=== PATIENT | female | born 1950 | race Two or more races ===

== ENCOUNTER 2021-04-25 22:06 | Inpatient (IN) | payer MEDICARE ==
[2021-04-25] MEDS ORDERED: HYDROcodone/APAP 5-325MG 1 EACH TAB PO STA (22:40)
--- NOTE | 2021-04-25 22:41 | ED ---
Fall HPI - General Chief Complaint: Fall Stated Complaint: Fall Time Seen by Provider: 04/25/21 22:13 Source: patient, RN notes reviewed, old records reviewed Mode of arrival: ambulatory Limitations: language barrier - History of Present Illness Initial Comments: This is a 62-year-old female with several from dementia as well as language barrier presented for a fall playing tennis today. Patient doesn't family provide history patient's been not male not have a libertarian since fall with right leg right hip pain. No other history is given. Patient denies any other complaints. Follows mechanical lowering backwards playing tenderness Complaint: fall -: hour(s) Fall From: standing When Fall Occurred: 1-3 hours [employer] Fall Witnessed: yes, by family Place Fall Occurred: street Loss of Consciousness: none Prolonged Down Time?: no Symptoms Prior to Fall: none Location - Extremities: Right: Thigh, Knee Severity: moderate Severity scale (1-10): 6 Quality: sharp Context: tripped/slipped Associated Symptoms: denies - Related Data Home Medications Medication Instructions Recorded Confirmed Atorvastatin [Lipitor] 20 mg PO HS 04/26/21 04/26/21 Donepezil HCl [Aricept] 10 mg PO HS 04/26/21 04/26/21 Memantine HCl 10 mg PO BID 04/26/21 04/26/21 Multivitamins, Thera [Multivitamin 1 tab PO DAILY 04/26/21 04/26/21 (formulary)] Allergies Allergy/AdvReac Type Severity Reaction Status Date / Time No Known Allergies Allergy Verified 04/26/21 12:04 Review of Systems ROS Statement: Those systems with pertinent positive or pertinent negative responses have been documented in the HPI. ROS Other: All systems not noted in ROS Statement are negative. Past Medical History Additional Past Medical History / Comment(s): dementia History of Any Multi-Drug Resistant Organisms: None Reported Past Surgical History: No Surgical Hx Reported Past Psychological History: No Psychological Hx Reported Smoking Status: Never smoker Past Alcohol Use History: None Reported Past Drug Use History: None Reported General Exam General appearance: alert, in no apparent distress Head exam: Present: atraumatic, normocephalic, normal inspection Eye exam: Present: normal appearance, PERRL, EOMI. Absent: scleral icterus, conjunctival injection, periorbital swelling ENT exam: Present: normal exam, mucous membranes moist Neck exam: Present: normal inspection. Absent: tenderness, meningismus, lymphadenopathy Respiratory exam: Present: normal lung sounds bilaterally. Absent: respiratory distress, wheezes, rales, rhonchi, stridor Cardiovascular Exam: Present: regular rate, normal rhythm, normal heart sounds. Absent: systolic murmur, diastolic murmur, rubs, gallop, clicks GI/Abdominal exam: Present: soft, normal bowel sounds. Absent: distended, tenderness, guarding, rebound, rigid Extremities exam: Present: normal inspection, full ROM, normal capillary refill. Absent: tenderness, pedal edema, joint swelling, calf tenderness Back exam: Present: normal inspection Neurological exam: Present: alert, oriented X3, CN II-XII intact Psychiatric exam: Present: normal affect, normal mood Skin exam: Present: warm, dry, intact, normal color. Absent: rash Course Vital Signs 04/25/21 04/26/21 22:07 02:00 Temperature 98.2 F 98.4 F Pulse Rate 61 Pulse Rate [ 64 Right Dorsalis Pedis] Respiratory 17 16 Rate Blood Pressure 114/64 Blood Pressure 164/70 [Left Arm] O2 Sat by Pulse 99 98 Oximetry - Reevaluation(s) Reevaluation #1: 04/25/21 22:50 Medical records reviewed Reevaluation #2: 04/25/21 22:50 Pain is improved Reevaluation #3: Patient informed results and questions answered - Consultations Consultation #1: Spoke with orthopedics okay for admission Medical Decision Making - Medical Decision Making 62 female DF for evaluation status post trip and fall. Patient did suffer right hip fracture. Patient be admitted for the P treatment and evaluation - Lab Data Result diagrams: 04/26/21 01:32 04/26/21 01:32 - EKG Data -: EKG Interpreted by Me (EKG is sinus a 61 GA 140 QRS 86 QTc 404) - Radiology Data Radiology results: report reviewed (X-ray right hip and knee show right hip fracture), image reviewed Disposition Clinical Impression: Fall, Closed right hip fracture Disposition: ADMITTED IP TO THIS [facility] Condition: Good Is patient prescribed a controlled substance at d/c from ED?: No
--- NOTE | 2021-04-25 23:35 | XR ---
EXAMINATION TYPE: XR knee complete RT DATE OF EXAM: 04/25/2021 COMPARISON: NONE HISTORY: Fall. Knee pain TECHNIQUE: 3 views FINDINGS: I see no fracture nor dislocation. Joint spaces are fairly normal. There is no sign of knee joint effusion. IMPRESSION: Negative right knee exam.
--- NOTE | 2021-04-25 23:36 | XR ---
EXAMINATION TYPE: XR Hip RT and AP Pelvis DATE OF EXAM: 04/25/2021 COMPARISON: NONE HISTORY: Pain TECHNIQUE: 3 views FINDINGS: There is slightly impacted acute subcapital fracture right femur. There is no dislocation. The pelvic ring is intact. Sacroiliac joints are intact. IMPRESSION: Acute subcapital impacted fracture right femur.
[2021-04-26] MEDS ORDERED: SODIUM CHLORIDE 0.9% 1,000 ML IV STA (00:39)
[2021-04-26] MEDS ORDERED: MORPHINE SULFATE 4 MG/ML SYRINGE IV STA (00:39)
[2021-04-26] MEDS ORDERED: SODIUM CHLORIDE 0.9% 500 ML 500 ML IV STA (00:39)
--- NOTE | 2021-04-26 01:10 | XR ---
EXAMINATION TYPE: XR chest 1V portable DATE OF EXAM: 04/26/2021 COMPARISON: NONE HISTORY: Hip fracture TECHNIQUE: Single view FINDINGS: There is no heart failure nor confluent pneumonic infiltrate. Costophrenic angles are clear . There are no hilar masses. Thoracic aorta is atheromatous. There is no pleural effusion. IMPRESSION: No active cardiopulmonary disease.
[2021-04-26] MEDS ORDERED: ONDANSETRON 4 MG/2 ML VIAL IVP PRN (01:29)
[2021-04-26] MEDS ORDERED: NALOXONE 0.4 MG/ML 1 ML VIAL IV PRN (01:29)
[2021-04-26 02:02] LABS: Basophils % (A) 0 %; Eosinophils % (A) 0 %; HGB 13.8 gm/dL (11.4-16.0); Lymphocytes # (A) 0.8 k/uL (1.0-4.8); Lymphocytes % (A) 10 %; MCH 32.2 pg (25.0-35.0); MCHC 34.5 g/dL (31.0-37.0); MCV 93.2 fL (80.0-100.0); Monocytes # (A) 0.3 k/uL (0-1.0); Monocytes % (A) 4 %; Neutrophils % (A) 85 %; Platelet Count 210 k/uL (150-450); RBC 4.29 m/uL (3.80-5.40); RDW 12.5 % (11.5-15.5); WBC 8.2 k/uL (3.8-10.6)
[2021-04-26 02:06] LABS: Appearance,Urine Clear (Clear); Bilirubin,Urine Negative (Negative); Blood,Urine Negative (Negative); Color,Urine Yellow; Glucose,Urine (UA) Negative (Negative); Ketones,Urine Trace (Negative); Leukocyte Esterase,Urine Negative (Negative); Nitrite,Urine Negative (Negative); Protein,Urine Negative (Negative); Specific Gravity,Urine 1.023 (1.001-1.035); Urobilinogen,Urine <2.0 mg/dL (<2.0)
[2021-04-26 02:17] LABS: ALT 31 U/L (4-34); AST 39 U/L (14-36); African American GFR (CKD) >90 (>60 ml/min/1.73 sqM); Albumin 4.3 g/dL (3.5-5.0); Alkaline Phosphatase 67 U/L (38-126); Anion Gap 7 mmol/L; Blood Urea Nitrogen 23 mg/dL (7-17); Calcium 9.5 mg/dL (8.4-10.2); Carbon Dioxide 29 mmol/L (22-30); Chloride 105 mmol/L (98-107); Glucose 103 mg/dL (74-99); INR 0.9 (<1.2); Non-African American GFR(CKD) >90 (>60 ml/min/1.73 sqM); Partial Thromboplastin Time 22.4 sec (22.0-30.0); Phosphorus 4.4 mg/dL (2.5-4.5); Potassium 3.9 mmol/L (3.5-5.1); Prothrombin Time 10.2 sec (9.0-12.0); Sodium 141 mmol/L (137-145); Total Bilirubin 0.7 mg/dL (0.2-1.3); Total Protein 7.2 g/dL (6.3-8.2)
[2021-04-26] MEDS: DEXTROSE 5%-0.45% NACL 1,000 ML IV SCH ×2 (04:36→23:21)
[2021-04-26] MEDS: HYDROcodone/APAP 5-325MG 1 EACH TAB PO PRN ×2 (05:08→17:33)
[2021-04-26] MEDS ORDERED: ACETAMINOPHEN TAB 325 MG TAB PO PRN (09:38)
--- NOTE | 2021-04-26 09:48 | P.HPOR ---
History of Present Illness H&P Date: 04/26/21 Chief Complaint: Right femoral neck fracture Patient is a 70-year-old female who presented to [facility] for evaluation of a right lower extremity injury. Apparently the patient was playing tennis with some family when she tripped and fell onto that right side. She initially was unable to put any weight on the leg, EMS was contacted and brought patient to the hospital. Upon arrival to the hospital, imaging and lab tests were done, images demonstrated a right impacted subcapital femur fracture. I was contacted by the emergency room staff, I was able to review the images. Patient was admitted under orthopedic care with plan for likely surgical int ervention. Consults were placed for internal medicine for management clearances. Patient was evaluated today on the med/surgical floor, she is resting comfortably in her hospital bed. There is a severe language barrier but I was able to discuss most of the case received most of the history from her. I also contacted her daughter and spoke with her in depth of the current treatment plan. Patient notes no other orthopedic complaints besides the right lower extremity. She notices the pain in the right lower extremity with movement. She denies any headaches, lightheadedness, chest pain, shortness of breath, nausea vomiting, fever or chills. Patiently recently moved to [place] to live with her daughter, she was in [place] before that. They're in town visiting family and were actually heading back to [place] tomorrow. Patient does have some early signs of dementia, this to include short-term memory loss. She is a rather active and healthy woman otherwise. Past Medical History Additional Past Medical History / Comment(s): dementia History of Any Multi-Drug Resistant Organisms: None Reported Past Surgical History: No Surgical Hx Reported Past Psychological History: No Psychological Hx Reported Smoking Status: Never smoker Past Alcohol Use History: None Reported Past Drug Use History: None Reported Medications and Allergies Home Medications Medication Instructions Recorded Confirmed Type Unable To Assess [Unable to Assess] 04/25/21 04/25/21 History Allergies Allergy/AdvReac Type Severity Reaction Status Date / Time No Known Allergies Allergy Verified 04/25/21 23:22 Physical Examination Right lower extremity: No obvious open lesions or sores are visualized, there is no significant areas of erythema or soft tissue swelling Patient is tender with palpation involving the proximal femur near the hip joint, she is nontender with palpation of the distal femur, this to include the knee, lower tibia/fib, foot or ankle Logroll maneuver does reproduce discomfort, she is unable to straight leg raise Plantar flexion, dorsiflexion, EHL, FHL are intact. Hip flexion, knee flexion and knee extension were not assessed due to pain. Calf is soft, no tenderness with palpation Her sensory exam light touch throughout the extremity is intact, and his cells pedis pulses 2+ General orthopedic exam: No tenderness in the midline and paraspinal region of the cervical, thoracic or lumbar spine, no obvious step-off is appreciated No point tenderness is reproduced in the bilateral upper extremities, she has painless range of motion in all major muscle groups of the bilateral upper extremities No point tenderness in the left lower extremity, she has full passive and active range of motion. Neurovascular exam is intact in the bilateral upper extremities and left lower extremity Results - Labs Labs: Abnormal Lab Results - Last 24 Hours (Table) 04/26/21 04/26/21 04/26/21 Range/Units 01:32 01:32 01:32 Lymphocytes # 0.8 L (1.0-4.8) k/uL BUN 23 H (7-17) mg/dL Glucose 103 H (74-99) mg/dL AST 39 H (14-36) U/L Urine Ketones Trace H (Negative) H & H 04/26/21 Range/Units 01:32 Hgb 13.8 (11.4-16.0) gm/dL Hct 40.0 (34.0-46.0) % Coagulation 04/26/21 Range/Units 01:32 INR 0.9 (<1.2) Result Diagrams: 04/26/21 01:32 04/26/21 01:32 - Diagnostic results Hip MRI: report reviewed, image reviewed (Images demonstrate an impacted right subcapital femur fracture. The remaining hip joint is intact, no other osseous abnormality is appreciated.) Assessment and Plan Assessment: Displaced right subcapital femur fracture status post fall from standing Other medical comorbidities Plan: I was able to discuss the case, including with physical exam findings and imaging certainly attending Dr. Guevara. We did like to proceed with surgical intervention, specifically a right total hip arthroplasty on 04/27/2021. The risk and benefits of the procedure were discussed with both patient and the daughter, this to include but not excluded blood loss, neurovascular injury, de velopment of blood clots, pain and stiffness, and adequate healing of bone, need for subsequent surgery. They're in good understanding and would like to proceed. Obtain consent Nothing by mouth after midnight Nonweightbearing right lower extremity at this time PT/OT evaluation after surgery GI and DVT prophylaxis, we'll begin eloquence 2.5 mg twice a day after surgery Other paramedical aide recommendations Discharge planning: Discussed with patient's daughter over the phone regarding d ischarge and returning to [place]. Advised that staying in the general area with home health care for a week or 2 would be of benefit. Patient would benefit from flying vs driving back to [place]. Did also discuss the patient she will need orthopedic follow-up once returning to [place].
[2021-04-26] MEDS: KETOROLAC 15 MG/ML 1 ML VIAL IVP SCH ×3 (11:54→23:20)
[2021-04-27] MEDS: HYDROcodone/APAP 5-325MG 1 EACH TAB PO PRN ×3 (02:45→21:45)
[2021-04-27] MEDS: KETOROLAC 15 MG/ML 1 ML VIAL IVP SCH ×4 (06:03→23:28)
[2021-04-27] MEDS ORDERED: LACTATED RINGERS 1,000 ML IV ONE (07:40)
[2021-04-27] MEDS ORDERED: PROPOFOL 10 MG/ML 20 ML VIAL IV ONE (08:03)
[2021-04-27] MEDS ORDERED: ePHEDrine SULFATE/0.9% NACL/PF 50 MG/5 ML SYRINGE IV ONE (08:03)
[2021-04-27] MEDS ORDERED: ONDANSETRON 4 MG/2 ML VIAL ONE (08:03)
[2021-04-27] MEDS ORDERED: fentaNYL (PF) 50 MCG/ML 2 ML AMP ONE (08:03)
[2021-04-27] MEDS ORDERED: SODIUM CHLORIDE 0.9% 100 ML with ceFAZolin 2,000 MG IV ONE ×2 (08:37)
[2021-04-27] MEDS ORDERED: MAGNESIUM HYDROXIDE 2,400 MG/10 ML CUP PO PRN (09:29)
--- NOTE | 2021-04-27 09:56 | P.OP ---
Date of Procedure: 04/27/21 Preoperative Diagnosis: Displaced right subcapital femoral neck fracture Postoperative Diagnosis: Same Procedure(s) Performed: Right hip hemiarthroplastypress-fit Implants: Depuy Corail size 9/125 press-fit collared femoral stem -3 neck, 41 mm unipolar head Anesthesia: spinal Surgeon: Drew Guevara Behavioral Instructor #1: Rayray Werner Estimated Blood Loss (ml): 100 Pathology: other (Femoral head) Condition: stable Disposition: PACU Indications for Procedure: Patient is a 70-year-old female presents after falling injuring her right hip. Upon evaluation she was noted have a displaced right subcapital femoral neck fracture. She is a community ambulator, however has early-onset dementia. A discussion of the risks and benefits of operative intervention was made with the patient and her family. Operative options to include right hip hemiarthroplasty versus total hip arthroplasty were discussed. They opted to proceed with hemiarthroplasty. Specific risks of surgery to include infection, neurovascular injury, development of blood clots, possible leg length discrepancy, possible fracture, possible instability need for subsequent procedures was discussed. Informed consent was obtained. Operative Findings: as below Description of Procedure: The patient was brought to the operating room, and after induction of spinal anesthesia was placed in the lateral decubitus position. Bony prominences were appropriately padded. The pelvis was stabilized perpendicular to the floor with a pegboard. The right lower extremity was prepped and draped in normal fashio n. A 12 cm incision was then made centered over the greater trochanter extending superiorly to level ASIS and distally along the femoral shaft. Skin and subcutaneous tissues were divided sharply. Electrocautery was used for hemostasis. The fascia serafin and gluteus faheem fascia was split in line with the skin incision. Muscle fibers were bluntly dissected proximally. A self- retaining retractor was placed. The anterior and posterior margins of the gluteus medius muscles identified in the into two thirds detached the greater trochanter with electrocautery. The gluteus minimus tendon was identified and detached in a similar fashion. A T-shaped capsulotomy was performed. The capsular flaps were tagged with #2 Ethibond suture. The femoral neck fracture was then identified. A lower neck cut was made at 45 the shaft with a sagittal saw to help facilitate head extraction. Head was then extracted with a corkscrew. It measured 41 millimeters . The acetabulum was inspected. No si gnificant chondral injury was noted. Attention was then paid towards preparing the proximal femur. A box chisel was used to open the metaphyseal region. A canal finder was used to find the femoral canal. Sequential broaching was performed up to a size 9 broach with the leg perpendicular to the floor in 15 of anteversion. There was good rotational stability. A calcar mill was used to fashion the medial calcar. A -3 neck and to 41 mm unipolar head was placed. The hip was gently reduced. It was taken through range of motion and felt to be stable in flexion and extension with internal and external rotation. I felt there was adequate roman catholic of soft tissue tension. Hip was gently dislocated. The trial components were then removed. Pulsatile lavage was utilized. The final size 9 /125 collared femoral stem was inserted again with the leg perpendicular to the floor in 15 of anteversion. This was fully seated. Again there was good rotational stability. A -3 neck and 41 mm unipolar head was gently impacted. Hip was gently reduced. Again it was taken through range of motion felt to be stable in flexion and extension with internal and external rotation. Again I felt there was adequate roman catholic of soft tissue tension. Pulsatile lavage was again utilized. The capsular layer was closed with interrupted #2 Ethibond suture. The gluteus minimus and medius tendons reattached the greater trochanter with #2 Ethibond suture. The fascia serafin and gluteus faheem fascia was closed with running #2 Ethibond suture. There is minimal drainage therefore a deep drain was not placed. The subcutaneous tissues were reapproximated interrupted 2-0 Vicryl sutures. Skin was reapproximated with 3-0 subcuticular strata fix suture. Skin tape and adhesive was applied. A sterile dressing was applied. The patient was then awoken from sedation and transferred to recovery room in fair condition. Blood loss was estimated 100 mL. No complications were incurred. Sponge and needle counts were correct at the end the case. Moisés MCGUIRE assisted during the major components the case to include positioning, exposure, implantation, and closure.
[2021-04-27 10:02] VITALS: RESP 16
--- NOTE | 2021-04-27 10:12 | XR ---
Right hip HISTORY: Status post right hip arthroplasty Single frontal view of the right hip Correlation to prior exam 04/25/2021 Patient is status post right hip arthroplasty. There is anatomic alignment. Lucency is present in the soft tissues. Bone mineralization is reduced. IMPRESSION: Orthopedic follow-up.
[2021-04-27] MEDS: SENNOSIDES-DOCUSATE SODIUM 1 EACH TAB PO SCH (21:43)
[2021-04-27] MEDS: MORPHINE SULFATE 2 MG/ML SYRINGE IVP PRN (23:27)
[2021-04-28] MEDS: DEXTROSE 5%-0.45% NACL 1,000 ML IV SCH (01:30)
[2021-04-28] MEDS: KETOROLAC 15 MG/ML 1 ML VIAL IVP SCH ×3 (05:49→17:04)
[2021-04-28 07:51] LABS: Basophils % (A) 0 %; Eosinophils # (A) 0.1 k/uL (0-0.7); Eosinophils % (A) 3 %; Lymphocytes # (A) 0.6 k/uL (1.0-4.8); Lymphocytes % (A) 11 %; MCH 31.3 pg (25.0-35.0); MCHC 32.3 g/dL (31.0-37.0); MCV 96.9 fL (80.0-100.0); Mean Platelet Volume 7.1; Monocytes # (A) 0.2 k/uL (0-1.0); Monocytes % (A) 4 %; Neutrophils # (A) 3.9 k/uL (1.3-7.7); Neutrophils % (A) 81 %; Platelet Count 180 k/uL (150-450); RBC 3.51 m/uL (3.80-5.40); RDW 13.1 % (11.5-15.5); WBC 4.9 k/uL (3.8-10.6)
[2021-04-28] MEDS: ENOXAPARIN 30 MG/0.3 ML SYRINGE SQ SCH (08:57)
--- NOTE | 2021-04-28 09:56 | P.PN ---
Subjective Progress Note Date: 04/28/21 Principal diagnosis: Status post hemiarthroplasty left hip Patient was evaluated today at bedside, she is resting in her hospital chair, she is up eating breakfast. She has no acute complaints at this time. She notes minimal discomfort in the left lower extremity. She has been up ambulating with the walker. The urinary catheter is still in place. She is denying any acute chest pain, shortness of breath, fever chills, nausea vomiting. Objective - Vital Signs Vital signs: Vital Signs Temp 98.4 F 04/28/21 07:40 Pulse 64 04/28/21 07:40 Resp 16 04/28/21 07:40 BP 110/68 04/28/21 07:40 Pulse Ox 97 04/28/21 07:40 Intake & Output 04/27/21 04/28/21 04/28/21 18:59 06:59 18:59 Intake Total 920 480 236 Output Total 1950 650 Balance -1030 -170 236 Intake: IV 920 Oral 480 236 Output: Urine 1850 650 Estimated Blood Loss 100 Other: Voiding Method Indwelling Catheter Indwelling Catheter - Exam Left lower extremity: Incision is clean, dry, and intact. The exofin fusion tape is in good conditio n. There is minimal soft tissue swelling and ecchymosis surrounding the medial and lateral aspects of the incision. Calf is soft, no tenderness with palpation. Plantar flexion, dorsiflexion, EHL, FHL are intact. Sensory exam to light touch throughout the extremity is intact, dorsal pedis pulses 2+. - Labs CBC & Chem 7: 04/28/21 07:07 04/26/21 01:32 Labs: Abnormal Lab Results - Last 24 Hours (Table) 04/28/21 Range/Units 07:07 RBC 3.51 L (3.80-5.40) m/uL Hgb 11.0 L (11.4-16.0) gm/dL Lymphocytes # 0.6 L (1.0-4.8) k/uL Assessment and Plan Assessment: Postoperative day #1 status post left hip hemiarthroplasty Plan: Pain control, continue use of low-dose oral medication. Avoid IV narcotics GI and DVT prophylaxis, continue Lovenox at this time Encourage incentive spirometer PT/OT evaluation Weight-bear as tolerated with walker Medical recommendations Discharge planning: We'll discuss the patient's family today options for discharge. Hoping for discharge to home with home health care Time with Patient: Less than 30
[2021-04-28] MEDS: SENNOSIDES-DOCUSATE SODIUM 1 EACH TAB PO SCH (20:44)
[2021-04-28] MEDS: MORPHINE SULFATE 2 MG/ML SYRINGE IVP PRN (20:44)
[2021-04-29] MEDS: KETOROLAC 15 MG/ML 1 ML VIAL IVP SCH ×2 (00:08→05:56)
[2021-04-29] MEDS: DEXTROSE 5%-0.45% NACL 1,000 ML IV SCH (01:48)
[2021-04-29] MEDS: ENOXAPARIN 30 MG/0.3 ML SYRINGE SQ SCH (07:19)
--- NOTE | 2021-04-29 10:25 | P.PN ---
Subjective Progress Note Date: 04/29/21 Principal diagnosis: Status post hemiarthroplasty left hip Patient was evaluated today at bedside, she is resting in her hospital bed. She appears comfortable at this time with no acute complaints. She is denying any acute chest pain, shortness of breath, fever chills, nausea vomiting. Objective - Vital Signs Vital signs: Vital Signs Temp 97.9 F 04/29/21 07:29 Pulse 73 04/29/21 07:29 Resp 16 04/29/21 08:31 BP 107/66 04/29/21 07:29 Pulse Ox 97 04/29/21 07:29 Intake & Output 04/28/21 04/29/21 04/29/21 18:59 06:59 18:59 Intake Total 768 300 Output Total 200 Balance 568 300 Intake: Oral 768 300 Output: Urine 200 Uretheral (Ortiz) 200 Other: Voiding Method Toilet # Voids 3 - Exam Left lower extremity: Incision is clean, dry, and intact. The exofin fusion tape is in good condition . There is minimal soft tissue swelling and ecchymosis surrounding the medial and lateral aspects of the incision. Calf is soft, no tenderness with palpation. Plantar flexion, dorsiflexion, EHL, FHL are intact. Sensory exam to light touch throughout the extremity is intact, dorsal pedis pulses 2+. - Labs CBC & Chem 7: 04/28/21 07:07 04/26/21 01:32 Assessment and Plan Assessment: Postoperative day #2 status post left hip hemiarthroplasty Plan: Pain control, plan for discharge on Tylenol 3 GI and DVT prophylaxis, aspirin 81 mg twice a day for 1 month Encourage incentive spirometer PT/OT evaluation Weight-bear as tolerated with walker Medical recommendations Discharge planning: planning for discharge to home with home healthcare today Time with Patient: Less than 30
--- NOTE | 2021-04-29 10:31 | P.DS ---
Providers Date of admission: 04/26/21 01:29 Expected date of discharge: 04/29/21 Attending physician: Drew Guevara Primary care physician: Physician Nonstaff Hospital Course: Date of admission: 04/25/2021 Date of discharge: 04/29/2021 Admission diagnosis: Displaced right subcapital femur fracture Discharge diagnosis: Status post right hip hemiarthroplasty Attending physician: Dr. Guevara Surgical procedures: Right hip hemiarthroplasty Brief history: Patient is a 70-year-old female who presented to [facility] on 04/25/2021 after sustaining a fall and injuring her right lower extremity. It was determined the patient had a displaced subcapital femur fracture, she was admitted under our orthopedic care with plan for surgical intervention. She underwent surgery on 04/27/2021 Hospital course: Details of patient's surgery can be found in operative report. Patient tolerated the procedure well and was subsequently transported to orthopedic floor. Patient's orthopeidc and medical care was provided daily. Patient had daily laboratory tests performed for evaluation of overall blood counts . Patient had daily physical therapy to include strengthening range of motion as well as education with walker ambulation. Patient was treated with Lovenox for their postoperative DVT prophylaxis during their inpatient stay. Patient was noted to have a relatively uneventful postoperative course. Patient reported satisfactory pain control with oral pain medications by postoperative day 0. Patient showed satisfactory progress with physical therapy. Patient moved steadily through the program and had no difficulty meeting the goals by postoperative day 2. Given patient's otherwise satisfactory course and having met physical therapy goals, plan is to discharge patient home on postoperative day 2. Discharge condition/disposition: Patient will be discharged home in stable condition. Discharge medications: Instructions are given on resumption of patient's normal daily medications per primary care recommendation, in addition patient will be prescribed Tylenol 3, Colace 100 mg, aspirin 81 mg. Discharge instructions: 1. Wound care and infection precautions, keep incision dry and covered while showering, no lotions, creams, moisturizers. No soaking, tubs, pools, hottubs. Do not scrub over the incision. 2. Weight-bear as tolerated with walker / cane until follow-up. 3. Ice and elevate when necessary. Do not exceed 20 minutes per hour with ice pack. 4. Utilize compression sleeve until seen at first follow up appointment. 5. Visiting nursing care. 6. Home physical therapy. 7. Pain meds and anticoagulants per prescription. 8. Pain medication has potential to cause constipation. Increase oral fluid and fiber intake. Contact primary care provider if you have not had a bowel movement within 48 hours after discharge 9. No anti-inflammatory medication until discussed at first post operative visit, this including Motrin, Aleve, Mobic, Diclofenac. 10. Follow up in office at 2 weeks postop with Moisés Werner PA-C/Brandan Fisher 11. Follow up with your primary care doctor 7-10 days after discharge. 12. Contact [facility] with any questions, . Procedures: Right hip hemiarthroplasty Patient Condition at Discharge: Good Plan - Discharge Summary Discharge Rx Participant: Yes New Discharge Prescriptions: New Aspirin [Adult Low Dose Aspirin EC] 81 mg PO BID #60 tablet. Docusate [Colace] 100 mg PO DAILY #30 capsule Acetaminophen-Codeine 300-30mg [Tylenol w/codeine #3] 1 tab PO Q6H PRN 3 Days #28 tablet PRN Reason: Pain No Action Multivitamins, Thera [Multivitamin (formulary)] 1 tab PO DAILY Donepezil HCl [Aricept] 10 mg PO HS Memantine HCl 10 mg PO BID Atorvastatin [Lipitor] 20 mg PO HS Discharge Medication List Atorvastatin [Lipitor] 20 mg PO HS 04/26/21 [History] Donepezil HCl [Aricept] 10 mg PO HS 04/26/21 [History] Memantine HCl 10 mg PO BID 04/26/21 [History] Multivitamins, Thera [Multivitamin (formulary)] 1 tab PO DAILY 04/26/21 [History] Acetaminophen-Codeine 300-30mg [Tylenol w/codeine #3] 1 tab PO Q6H PRN 3 Days #28 tablet 04/29/21 [Rx] Aspirin [Adult Low Dose Aspirin EC] 81 mg PO BID #60 tablet. 04/29/21 [Rx] Docusate [Colace] 100 mg PO DAILY #30 capsule 04/29/21 [Rx] Follow up Appointment(s)/Referral(s): [facility], [NON-STAFF] - As Needed Nonstaff,Physician [Primary Care Provider] - 1-2 days Branch,Rayray M, PAC [PHYSICIAN [employer] MANAGER] - 2 Weeks Activity/Diet/Wound Care/Special Instructions: Orthopedic Discharge Instructions: 1. Wound care and infection precautions, keep incision dry and covered while showering, no lotions, creams, moisturizers. No soaking, pools, hot tubs. Do not scrub over incision. 2. Weight-bear as tolerated with walker / cane until follow-up. 3. Ice and elevate when necessary. Do not exceed 20 minutes per hour with ice pack. 4. Utilize compression sleeve until seen at first follow up appointment. 5. Pain meds and anticoagulants per prescription. 6. Pain medication has potential to cause constipation. Increase oral fluid and fiber intake. Contact primary care provider if you have not had a bowel movement within 48 hours after discharge. 7. No anti-inflammatory medication until discussed at first post operative visit, this including Motrin, Aleve, Mobic, Diclofenac. 8. Follow up in office at 2 weeks postop with Moisés Werner PA-C/Brandan Cerrato PA-C 9. Follow up with your primary care doctor 7-10 days after discharge. 10. Contact [facility] with any questions, . Posterior hip precautions: 1. Do not cross right leg 2. Avoid excess ending at the waist 3. Avoid lying directly on the right side 4. Try to utilize the abductor pillow or regular pillows between the legs while lying in bed Discharge Disposition: HOME WITH HOME HEALTH SERVICES
[2021-04-29] MEDS: HYDROcodone/APAP 5-325MG 1 EACH TAB PO PRN (13:18)
[2021-04-29 14:09] VITALS: BP 118/68; PULSE 63; TEMP 98.6
== END 2021-04-29 15:03 | disposition home health service (06) ==
LOC: EC 22:06 → 4SSUR 04-26 01:29
PROVIDERS: ADMIT Orthopaedic Surgery; ATTEND Orthopaedic Surgery
CPT/HCPCS: 71045; 73502; 80053; 81003; 83735; 84100; 84484; 85025; 85610; 85730; 88305; 88311; 93005; 99285